=== PATIENT | female | born 1945 | race Caucasian/White ===

== ENCOUNTER → 2016-03-06 | Outpatient (CLI) | payer MEDICARE, BC ==
[~2016-03-06] MED LIST: ADVIL200 MG PO; ALIGN; ASPIRIN 32325 MG/TAB PO; ASPIRIN 81M81 MG/TA2 PO; ATIVAN 0.50.5 MG/TAB PO; B-121000 MCG PO; BETAPACE 80MG80 MG PO; BRILINTA90 MG PO; CARDIZEM CD 30300 MG PO; CARTIA XT300 MG PO; CEPHALEXIN500 M1 PO; COUMADIN 3MG3 MG/TAB PO; COUMADIN 6MG6 MG/TAB PO; COUMADIN4 MG PO; ELIQUIS 5MG PO; GLUCOPHAGE1000 MG PO; GLUCOPHAGE500 MG/TAB PO; LANOXIN 0.120.125 MG PO; LANOXIN 0.25M0.25 MG PO; LASIX 20MG TABL20 MG PO; LEVEMIR FLEXPEN SC; LEVEMIR100 U/ML SQ; LEXAPRO 10MG10 MG PO; LEXAPRO 5MG5 MG PO; LIPITOR 10MG10 MG PO; LIPITOR 80MG80 MG PO; LIPITOR20 MG PO; LOPRESSOR 225 MG/TAB PO; MAG-OX 400400 MG/TAB PO; MOTRIN 600600 MG/TAB PO; MULTI VITAMINS1 TAB PO; MULTIPLE VITAMI1 CAP PO; NATURE'S BL400 IU/ML PO; NITROSTAT0.4 MG/TAB SL; PACERONE200 MG PO; PLAVIX 75MG TAB75 MG PO; PRILOSEC 20MG20 MG PO; SYNTHROID0.05 MG/TA PO; SYNTHROID0.075 MG/T PO; SYNTHROID0.088 MG/T PO; SYNTHROID0.1 MG/TAB PO; SYNTHROID0.112 MG/T PO; SYNTHROID0.125 MG/T PO; TAZTIA360 PO; TOPROL XL 50MG50 MG PO; TYLENOL 325MG325 MG PO; TYLENOL ARTHRI650 M1 PO; VITAMIN B PO; VITAMIN B-1000 MCG/T PO; VTAMINC250TA PO; ZESTRIL2.5 MG PO
== END ==
LOC: MC.RAD 02-14 13:20
DX: Z12.31 Encounter for screening mammogram for malignant neoplasm of breast (principal); N64.89 Other specified disorders of breast

== ENCOUNTER → 2016-03-07 | Outpatient (CLI) | payer MEDICARE, BC | LOC: MC.RAD 11:14 | DX: Z12.39 Encounter for other screening for malignant neoplasm of breast (principal) ==

== ENCOUNTER → 2016-05-08 | Outpatient (CLI) | payer MEDICARE, BC | LOC: COL.RAD 13:55 | DX: N12 Tubulo-interstitial nephritis, not specified as acute or chronic (principal) | CPT/HCPCS: Q9967 ==

== ENCOUNTER → 2016-06-29 | Outpatient (CLI) | payer MEDICARE, BC | LOC: COL.RAD 09:22 | DX: N11.9 Chronic tubulo-interstitial nephritis, unspecified (principal); K80.20 Calculus of gallbladder without cholecystitis without obstruction | CPT/HCPCS: Q9967 ==

== ENCOUNTER 2016-09-07 06:29 | Day surgery (SDC) | payer MEDICARE, BC ==
[~2016-09-07] VITALS: Ht 162.6 cm; Wt 60.7 kg
[~2016-09-07 06:29] MED LIST changes: -MOTRIN 600600 MG/TAB PO; -VITAMIN B-1000 MCG/T PO
[2016-09-07 07:24] LABS: INR 1.2 (0.8-3.0); PROTHROMBIN TIME 13.7 SECONDS (9.7-12.8)
[2016-09-07 07:34] VITALS: BP 114/80; PULSE 77; TEMP 98
[2016-09-07] MEDS ORDERED: LEXAPRO 10MG10 MG PO (07:39)
[2016-09-07] MEDS ORDERED: LASIX 20MG TABL20 MG PO (07:43)
[2016-09-07] MEDS ORDERED: MOTRIN 600600 MG/TAB PO (07:45)
[2016-09-07] MEDS ORDERED: VITAMIN B-1000 MCG/T PO (07:46)
[2016-09-07] MEDS ORDERED: TAZTIA360 PO (07:47)
[2016-09-07 08:45] VITALS: BP 100/65; PULSE 70; TEMP 98
[2016-09-07 09:00] VITALS: BP 109/61; PULSE 70
[2016-09-07 09:15] VITALS: BP 109/68; PULSE 70
== END 2016-09-07 09:38 | disposition home or self-care (01) ==
LOC: SDCO 06:29
PROVIDERS: Surgery
DX: Z12.11 Encounter for screening for malignant neoplasm of colon (principal); I25.10 Atherosclerotic heart disease of native coronary artery without angina pectoris; I25.2 Old myocardial infarction; I07.1 Rheumatic tricuspid insufficiency; I50.9 Heart failure, unspecified; I48.91 Unspecified atrial fibrillation; E11.9 Type 2 diabetes mellitus without complications; J31.0 Chronic rhinitis; E78.5 Hyperlipidemia, unspecified; E03.9 Hypothyroidism, unspecified; F32.9 Major depressive disorder, single episode, unspecified; K58.9 Irritable bowel syndrome, unspecified; Z95.0 Presence of cardiac pacemaker; Z79.84 Long term (current) use of oral hypoglycemic drugs; Z79.01 Long term (current) use of anticoagulants; Z86.010 Personal history of colon polyps; Z80.0 Family history of malignant neoplasm of digestive organs
CPT/HCPCS: OP; J2704; J7030

== ENCOUNTER → 2016-11-01 | Outpatient (CLI) | payer MEDICARE, BC ==
[~2016-11-01] MED LIST changes: +MOTRIN 600600 MG/TAB PO; +VITAMIN B-1000 MCG/T PO
== END ==
LOC: BHSO 10:08
DX: F41.1 Generalized anxiety disorder (principal)

== ENCOUNTER → 2017-01-28 | Outpatient (CLI) | payer MEDICARE, BC | LOC: BHSO 09:34 | DX: F41.1 Generalized anxiety disorder (principal) ==

== ENCOUNTER 2017-02-22 13:26 | Inpatient (IN) | payer MEDICARE, BC ==
[~2017-02-22] VITALS: Ht 162.6 cm; Wt 66.4 kg
[~2017-02-22 13:26] MED LIST changes: +COUMADIN 5MG5 MG/TAB PO; -COUMADIN4 MG PO
[2017-02-22 14:21] LABS: BASO # 0.1 (0.0-0.2); BASO % 0.7 % (0.0-2.0); EOS % 0.4 % (0-4.0); GRAN # 6.9 (1.4-6.5); GRAN % 82.2 % (42.2-75.2); HEMATOCRIT 39.1 % (37.0-47.0); HEMOGLOBIN 13.2 g/dl (12.5-16.0); LYMPH # 0.9 (1.2-3.4); LYMPH % 10.7 % (20.0-51.0); MEAN CELL VOLUME 94 fl (80.0-100.0); MEAN CORPUSCULAR HEMOGLOBIN 32 pg (27.0-31.0); MEAN CORPUSCULAR HGB CONC 34 g/dl (33.0-37.0); MEAN PLATELET VOLUME 11.1 fl (7.4-10.4); MONO # 0.5 (0.1-0.6); MONO % 5.8 % (1.7-9.3); PLATELET COUNT 245 K/mm3 (130-400); RED BLOOD COUNT 4.18 M/mm3 (4.10-5.30); REDCELL DISTRIBUTION WIDTH-CV 12.1 % (11.5-14.5)
[2017-02-22 14:30] LABS: BILIRUBIN,TOTAL 0.7 mg/dL (0.0-1.0); C-REACTIVE PROTEIN 0.9 mg/dL (0.0-0.9); CALCIUM 9.7 mg/dL (8.4-10.2); POTASSIUM 4.7 mmol/L (3.4-5.0); TOTAL PROTEIN 8.4 gm/dL (6.4-8.2)
[2017-02-22 14:31] LABS: INR 5.2 (0.8-3.0); PROTHROMBIN TIME 62.8 SECONDS (9.7-12.8)
[2017-02-22 14:35] LABS: CREATININE, serum 5.08 mg/dL (0.52-1.25)
[2017-02-22 15:14] LABS: TROPONIN-I 0.297 ng/mL (0.000-0.034)
[2017-02-22 15:16] LABS: DIGOXIN 1.8 ng/mL (0.8-2.0)
[2017-02-22 19:39] LABS: COLLECTION METHOD CLEAN CATCH
[2017-02-22 19:53] LABS: PH 5 (5-8); SQUAMOUS EPITHELIAL 0-2 /hpf; URINE APPEARANCE Hazy; URINE BACTERIA Rare /hpf; URINE BILIRUBIN Negative (NEGATIVE); URINE BLOOD Negative (NEGATIVE); URINE COLOR Yellow; URINE GLUCOSE Negative (NEGATIVE); URINE KETONE Negative (NEGATIVE); URINE LEUKOCYTE ESTERASE Trace (NEGATIVE); URINE NITRATE Negative (NEGATIVE); URINE PROTEIN(semi-quant) 1+ (NEGATIVE); URINE UROBILINOGEN Negative (NEGATIVE)
[2017-02-22 20:47] VITALS: BP 100/78; PULSE 60; TEMP 98.3
[2017-02-22] MEDS ORDERED: NAMENDA5 MG PO (20:51)
[2017-02-22] MEDS ORDERED: COUMADIN4 MG PO (20:57)
[2017-02-22 21:16] LABS: CALCIUM 9.1 mg/dL (8.4-10.2); POTASSIUM 4.6 mmol/L (3.4-5.0)
[2017-02-22 21:19] LABS: CREATININE, serum 5.11 mg/dL (0.52-1.25)
[2017-02-23 00:29] VITALS: BP 127/64; PULSE 70; TEMP 98.6
[2017-02-23 03:53] VITALS: BP 129/67; PULSE 70; TEMP 98.7
[2017-02-23 06:52] LABS: BASO % 0.6 % (0.0-2.0); EOS # 0.1 (0.0-0.7); EOS % 1.9 % (0-4.0); GRAN # 4.7 (1.4-6.5); GRAN % 72.5 % (42.2-75.2); LYMPH # 1.2 (1.2-3.4); LYMPH % 18.4 % (20.0-51.0); MEAN CELL VOLUME 94 fl (80.0-100.0); MEAN CORPUSCULAR HGB CONC 34 g/dl (33.0-37.0); MEAN PLATELET VOLUME 11.3 fl (7.4-10.4); MONO # 0.4 (0.1-0.6); MONO % 6.3 % (1.7-9.3); PLATELET COUNT 214 K/mm3 (130-400); RED BLOOD COUNT 3.74 M/mm3 (4.10-5.30)
[2017-02-23 06:57] LABS: HEMOGLOBIN 11.8 g/dl (12.5-16.0); MEAN CORPUSCULAR HEMOGLOBIN 32 pg (27.0-31.0)
[2017-02-23 07:12] LABS: INR 5.1 (0.8-3.0); PROTHROMBIN TIME 60.6 SECONDS (9.7-12.8)
[2017-02-23 07:28] VITALS: BP 130/81; PULSE 94; TEMP 97.6
[2017-02-23 10:00] LABS: POTASSIUM 4.4 mmol/L (3.4-5.0)
[2017-02-23 10:03] LABS: CREATININE, serum 5.15 mg/dL (0.52-1.25)
[2017-02-23 11:21] VITALS: BP 128/70; PULSE 73; TEMP 98.1
[2017-02-23 15:24] VITALS: BP 127/50; PULSE 35; TEMP 97.7
[2017-02-23 21:08] LABS: URINE PROTEIN:CREAT RATIO 0.89 (0.00-0.14)
[2017-02-23 22:25] VITALS: BP 140/77; PULSE 70; TEMP 98.5
[2017-02-24] VITALS (7 sets, daily range): BP systolic 111–145; BP diastolic 40–83; PULSE 62–95; TEMP 97.9–98.7
[2017-02-24 06:29] LABS: BASO % 0.5 % (0.0-2.0); EOS # 0.1 (0.0-0.7); EOS % 1.2 % (0-4.0); GRAN # 5.9 (1.4-6.5); GRAN % 79.9 % (42.2-75.2); LYMPH # 0.7 (1.2-3.4); LYMPH % 10.1 % (20.0-51.0); MEAN CELL VOLUME 93 fl (80.0-100.0); MEAN CORPUSCULAR HGB CONC 34 g/dl (33.0-37.0); MEAN PLATELET VOLUME 11.4 fl (7.4-10.4); MONO # 0.6 (0.1-0.6); PLATELET COUNT 196 K/mm3 (130-400); RED BLOOD COUNT 3.77 M/mm3 (4.10-5.30); REDCELL DISTRIBUTION WIDTH-CV 12.1 % (11.5-14.5)
[2017-02-24 06:30] LABS: INR 3.2 (0.8-3.0); PROTHROMBIN TIME 37.8 SECONDS (9.7-12.8)
[2017-02-24 06:31] LABS: HEMATOCRIT 34.9 % (37.0-47.0); HEMOGLOBIN 11.9 g/dl (12.5-16.0); MEAN CORPUSCULAR HEMOGLOBIN 32 pg (27.0-31.0)
[2017-02-24 06:47] LABS: TROPONIN-I 0.023 ng/mL (0.000-0.034)
[2017-02-25 04:41] LABS: COLLECTION METHOD CLEAN CATCH
[2017-02-25 04:50] LABS: MUCOUS Present /lpf; PH 5 (5-8); SQUAMOUS EPITHELIAL None Seen /hpf; URINE APPEARANCE Clear; URINE BACTERIA None Seen /hpf; URINE BILIRUBIN Negative (NEGATIVE); URINE BLOOD 2+ (NEGATIVE); URINE COLOR Straw; URINE GLUCOSE Negative (NEGATIVE); URINE KETONE Negative (NEGATIVE); URINE LEUKOCYTE ESTERASE Negative (NEGATIVE); URINE NITRATE Negative (NEGATIVE); URINE PROTEIN(semi-quant) Negative (NEGATIVE); URINE RBC 0-2 /hpf; URINE UROBILINOGEN Negative (NEGATIVE)
[2017-02-25 07:34] VITALS: BP 135/63; PULSE 71; TEMP 97.8
[2017-02-25 08:08] LABS: BASO % 0.3 % (0.0-2.0); EOS # 0.1 (0.0-0.7); EOS % 1.4 % (0-4.0); GRAN # 5.9 (1.4-6.5); GRAN % 81.5 % (42.2-75.2); LYMPH # 0.6 (1.2-3.4); LYMPH % 8.9 % (20.0-51.0); MEAN CELL VOLUME 92 fl (80.0-100.0); MEAN CORPUSCULAR HGB CONC 34 g/dl (33.0-37.0); MEAN PLATELET VOLUME 11.5 fl (7.4-10.4); MONO # 0.6 (0.1-0.6); MONO % 7.8 % (1.7-9.3); PLATELET COUNT 174 K/mm3 (130-400); RED BLOOD COUNT 3.56 M/mm3 (4.10-5.30)
[2017-02-25 08:10] LABS: HEMATOCRIT 32.7 % (37.0-47.0); HEMOGLOBIN 11.1 g/dl (12.5-16.0); MEAN CORPUSCULAR HEMOGLOBIN 31 pg (27.0-31.0)
[2017-02-25 08:19] LABS: INR 2.5 (0.8-3.0); PROTHROMBIN TIME 29.8 SECONDS (9.7-12.8)
[2017-02-25 11:10] VITALS: BP 138/74; PULSE 70; TEMP 98.2
[2017-02-25 13:10] LABS: CALCIUM 9.2 mg/dL (8.4-10.2); POTASSIUM 4.5 mmol/L (3.4-5.0)
[2017-02-25 13:15] LABS: CREATININE, serum 5.97 mg/dL (0.52-1.25)
[2017-02-25 15:47] VITALS: BP 143/88; PULSE 54; TEMP 97.7
[2017-02-25 19:30] VITALS: BP 131/78; PULSE 83; TEMP 97.4
[2017-02-25 22:41] LABS: COMPLEMENT-C3 128 mg/dL (79-152); COMPLEMENT-C4 31 mg/dL (18-55)
[2017-02-26 06:33] VITALS: BP 142/82; PULSE 71; TEMP 98
[2017-02-26 08:15] LABS: CALCIUM 9.6 mg/dL (8.4-10.2); POTASSIUM 4.3 mmol/L (3.4-5.0)
[2017-02-26 08:26] LABS: CREATININE, serum 5.85 mg/dL (0.52-1.25)
[2017-02-26 08:35] VITALS: BP 150/90; PULSE 76; TEMP 97.7
[2017-02-26 12:03] VITALS: BP 135/63; PULSE 70; TEMP 97.8
[2017-02-26 16:19] VITALS: BP 125/57; PULSE 72; TEMP 97.9
[2017-02-26 20:19] VITALS: BP 121/64; PULSE 70; TEMP 97.5
[2017-02-27 03:09] VITALS: BP 150/79; PULSE 71; TEMP 97.1
[2017-02-27 07:40] LABS: CALCIUM 9.3 mg/dL (8.4-10.2); MAGNESIUM 2.3 mg/dL (1.6-2.3); POTASSIUM 4.6 mmol/L (3.4-5.0)
[2017-02-27 07:48] LABS: CREATININE, serum 5.63 mg/dL (0.52-1.25)
[2017-02-27] MEDS ORDERED: JANUVIA25 MG PO (11:45)
[2017-02-27] MEDS ORDERED: ASPIRIN E.C. 8181 MG PO (11:46)
[2017-02-27 12:20] VITALS: BP 139/86; PULSE 72; TEMP 97.3
[2017-02-27 14:10] VITALS: BP 139/86; PULSE 72; TEMP 97.3
[2017-02-27 17:02] VITALS: BP 141/65; PULSE 69; TEMP 97.9
[2017-02-27 19:41] VITALS: BP 148/81; PULSE 74; TEMP 98.6
[2017-02-28 05:51] VITALS: BP 140/74; PULSE 72; TEMP 99.1
[2017-02-28 07:33] LABS: INR 1.3 (0.8-3.0); PROTHROMBIN TIME 15.3 SECONDS (9.7-12.8)
[2017-02-28 07:54] LABS: CALCIUM 9.5 mg/dL (8.4-10.2); POTASSIUM 4.5 mmol/L (3.4-5.0)
[2017-02-28 08:05] LABS: CREATININE, serum 5.42 mg/dL (0.52-1.25)
[2017-02-28 08:24] VITALS: BP 142/76; PULSE 81; TEMP 97.9
[2017-02-28 10:09] VITALS: BP 139/86; PULSE 72; TEMP 97.3
== END 2017-02-28 11:45 | DRG 683 ==
LOC: COL.ER 13:26 → MEDICAL 19:05
PROVIDERS: Emergency Medicine; Internal Medicine; Nurse Practitioner Family
DX: N17.9 Acute kidney failure, unspecified (principal); E87.2 Acidosis; I13.0 Hypertensive heart and chronic kidney disease with heart failure and stage 1 through stage 4 chronic kidney disease, or unspecified chronic kidney disease; I50.32 Chronic diastolic (congestive) heart failure; F01.51 Vascular dementia, unspecified severity, with behavioral disturbance; Z66 Do not resuscitate; N18.1 Chronic kidney disease, stage 1; E11.22 Type 2 diabetes mellitus with diabetic chronic kidney disease; E11.319 Type 2 diabetes mellitus with unspecified diabetic retinopathy without macular edema; I48.2 Chronic atrial fibrillation; I25.10 Atherosclerotic heart disease of native coronary artery without angina pectoris; Z79.01 Long term (current) use of anticoagulants; Z95.5 Presence of coronary angioplasty implant and graft; Z95.0 Presence of cardiac pacemaker
CPT/HCPCS: 99223; 99231-AI; J3475; J7030

== ENCOUNTER → 2017-03-06 | Outpatient (CLI) | payer MEDICARE, BC ==
[~2017-03-06] MED LIST changes: +ASPIRIN E.C. 8181 MG PO; +COUMADIN4 MG PO; +JANUVIA25 MG PO; +NAMENDA5 MG PO
[2017-03-06 18:00] LABS: MEAN CELL VOLUME 91 fl (80.0-100.0); MEAN CORPUSCULAR HGB CONC 35 g/dl (33.0-37.0); MEAN PLATELET VOLUME 11.1 fl (7.4-10.4); PLATELET COUNT 246 K/mm3 (130-400); RED BLOOD COUNT 3.46 M/mm3 (4.10-5.30); REDCELL DISTRIBUTION WIDTH-CV 11.9 % (11.5-14.5)
[2017-03-06 18:06] LABS: HEMATOCRIT 31.4 % (37.0-47.0); HEMOGLOBIN 10.9 g/dl (12.5-16.0); MEAN CORPUSCULAR HEMOGLOBIN 32 pg (27.0-31.0)
[2017-03-06 18:13] LABS: ALBUMIN 4.4 gm/dL (3.5-5.0); BILIRUBIN,TOTAL 0.4 mg/dL (0.0-1.0); CALCIUM 9.2 mg/dL (8.4-10.2); CREATININE, serum 3.35 mg/dL (0.52-1.25); POTASSIUM 3.9 mmol/L (3.4-5.0); TOTAL PROTEIN 7.7 gm/dL (6.4-8.2)
== END ==
LOC: ZCOL.LAB 17:51
PROVIDERS: Internal Medicine
DX: N17.9 Acute kidney failure, unspecified (principal)

== ENCOUNTER → 2017-03-14 | Outpatient (CLI) | payer MEDICARE, BC ==
[2017-03-14 16:55] LABS: COLLECTION METHOD CLEAN CATCH
[2017-03-14 17:04] LABS: BASO # 0.1 (0.0-0.2); BASO % 0.8 % (0.0-2.0); EOS # 0.1 (0.0-0.7); EOS % 1.9 % (0-4.0); GRAN # 4.7 (1.4-6.5); GRAN % 75.5 % (42.2-75.2); LYMPH # 0.9 (1.2-3.4); LYMPH % 14.9 % (20.0-51.0); MEAN CELL VOLUME 95 fl (80.0-100.0); MEAN CORPUSCULAR HGB CONC 33 g/dl (33.0-37.0); MEAN PLATELET VOLUME 10.6 fl (7.4-10.4); MONO # 0.4 (0.1-0.6); MONO % 6.6 % (1.7-9.3); PLATELET COUNT 301 K/mm3 (130-400); RED BLOOD COUNT 3.21 M/mm3 (4.10-5.30); REDCELL DISTRIBUTION WIDTH-CV 11.9 % (11.5-14.5)
[2017-03-14 17:14] LABS: HEMATOCRIT 30.4 % (37.0-47.0); HEMOGLOBIN 10.1 g/dl (12.5-16.0); MEAN CORPUSCULAR HEMOGLOBIN 31 pg (27.0-31.0)
[2017-03-14 17:14] LABS: CALCIUM 9.5 mg/dL (8.4-10.2); CREATININE, serum 2.04 mg/dL (0.52-1.25); PH 5 (5-8); POTASSIUM 4.2 mmol/L (3.4-5.0); SQUAMOUS EPITHELIAL 0-2 /hpf; URINE APPEARANCE Clear; URINE BACTERIA Rare /hpf; URINE BILIRUBIN Negative (NEGATIVE); URINE BLOOD 1+ (NEGATIVE); URINE COLOR Yellow; URINE GLUCOSE Negative (NEGATIVE); URINE KETONE Negative (NEGATIVE); URINE LEUKOCYTE ESTERASE Trace (NEGATIVE); URINE NITRATE Negative (NEGATIVE); URINE PROTEIN(semi-quant) Negative (NEGATIVE); URINE UROBILINOGEN Negative (NEGATIVE)
[2017-03-15 14:04] LABS: URINE MICROALBUMIN 3.3 mg/dL (0.0-1.7)
== END ==
LOC: COL.LAB 16:06
PROVIDERS: Internal Medicine
DX: N17.8 Other acute kidney failure (principal); E87.1 Hypo-osmolality and hyponatremia

== ENCOUNTER → 2017-04-16 | Outpatient (CLI) | payer MEDICARE, BC ==
[~2017-04-16] MED LIST changes: +DIGITEK0.125 MG PO; +FLONASEALLERGY NS; +OMNICEF 300MG300 MG PO
[2017-04-16 10:51] LABS: HEMATOCRIT 32.2 % (37.0-47.0); HEMOGLOBIN 10.7 g/dl (12.5-16.0)
[2017-04-16 10:58] LABS: CALCIUM 10.1 mg/dL (8.4-10.2); CREATININE, serum 1.38 mg/dL (0.52-1.25); POTASSIUM 4.2 mmol/L (3.4-5.0)
[2017-04-16 23:21] LABS: URINE MICROALBUMIN 0.7 mg/dL (0.0-1.7)
== END ==
LOC: COL.LAB 09:43
PROVIDERS: Internal Medicine
DX: N17.8 Other acute kidney failure (principal); R80.8 Other proteinuria

== ENCOUNTER 2017-04-29 11:25 | Emergency (ER) | payer MEDICARE, BC ==
[~2017-04-29] VITALS: Ht 162.6 cm; Wt 61.4 kg
[2017-04-29 11:29] VITALS: TEMP 97.8
[2017-04-29 13:06] LABS: BASO # 0.1 (0.0-0.2); EOS # 0.1 (0.0-0.7); GRAN # 4.9 (1.4-6.5); GRAN % 80.1 % (42.2-75.2); LYMPH # 0.7 (1.2-3.4); MEAN CELL VOLUME 94 fl (80.0-100.0); MEAN CORPUSCULAR HGB CONC 33 g/dl (33.0-37.0); MEAN PLATELET VOLUME 10.7 fl (7.4-10.4); MONO # 0.3 (0.1-0.6); MONO % 5.6 % (1.7-9.3); PLATELET COUNT 200 K/mm3 (130-400); RED BLOOD COUNT 3.45 M/mm3 (4.10-5.30); REDCELL DISTRIBUTION WIDTH-CV 12.7 % (11.5-14.5)
[2017-04-29 13:07] LABS: HEMATOCRIT 32.4 % (37.0-47.0); HEMOGLOBIN 10.8 g/dl (12.5-16.0); MEAN CORPUSCULAR HEMOGLOBIN 31 pg (27.0-31.0)
[2017-04-29 13:11] LABS: INR 2.7 (0.8-3.0); PROTHROMBIN TIME 32.1 SECONDS (9.7-12.8)
[2017-04-29 13:21] LABS: CALCIUM 9.9 mg/dL (8.4-10.2); CREATININE, serum 1.3 mg/dL (0.52-1.25); POTASSIUM 4.5 mmol/L (3.4-5.0)
[2017-04-29 13:36] VITALS: BP 136/78; PULSE 79
== END 2017-04-29 13:37 | disposition home or self-care (01) ==
LOC: COL.ER 11:25
PROVIDERS: Physician Assistant
DX: S01.01XA Laceration without foreign body of scalp, initial encounter (principal); S00.83XA Contusion of other part of head, initial encounter; S70.02XA Contusion of left hip, initial encounter; S80.02XA Contusion of left knee, initial encounter; S90.122A Contusion of left lesser toe(s) without damage to nail, initial encounter; I11.0 Hypertensive heart disease with heart failure; I50.9 Heart failure, unspecified; I48.91 Unspecified atrial fibrillation; E11.9 Type 2 diabetes mellitus without complications; F03.90 Unspecified dementia, unspecified severity, without behavioral disturbance, psychotic disturbance, mood disturbance, and anxiety; Z79.01 Long term (current) use of anticoagulants; Z79.51 Long term (current) use of inhaled steroids; W01.198A Fall on same level from slipping, tripping and stumbling with subsequent striking against other object, initial encounter; Y92.008 Other place in unspecified non-institutional (private) residence as the place of occurrence of the external cause

== ENCOUNTER 2017-05-27 09:27 | Emergency (ER) | payer MEDICARE, BC ==
[~2017-05-27] VITALS: Ht 162.6 cm; Wt 63.3 kg
[2017-05-27 10:04] VITALS: TEMP 99.6
[2017-05-27 11:37] LABS: MEAN CELL VOLUME 93 fl (80.0-100.0); MEAN CORPUSCULAR HGB CONC 34 g/dl (33.0-37.0); MEAN PLATELET VOLUME 10.3 fl (7.4-10.4); PLATELET COUNT 172 K/mm3 (130-400); RED BLOOD COUNT 3.46 M/mm3 (4.10-5.30)
[2017-05-27 11:41] LABS: HEMATOCRIT 32.2 % (37.0-47.0); HEMOGLOBIN 10.9 g/dl (12.5-16.0); MEAN CORPUSCULAR HEMOGLOBIN 32 pg (27.0-31.0)
[2017-05-27 11:42] LABS: INR 4.1 (0.8-3.0)
[2017-05-27 11:44] LABS: PROTHROMBIN TIME 48.9 SECONDS (9.7-12.8)
[2017-05-27 11:49] LABS: BILIRUBIN,TOTAL 0.4 mg/dL (0.0-1.0); CALCIUM 9.1 mg/dL (8.4-10.2); CREATININE, serum 1.1 mg/dL (0.52-1.25); POTASSIUM 3.8 mmol/L (3.4-5.0); TOTAL PROTEIN 7.6 gm/dL (6.4-8.2)
[2017-05-27 12:48] LABS: BAND 9 % (0-10); LYMPHOCYTE 9 % (20.0-51.0); NEUTROPHILS 82 % (42.0-75.2); PLATELET ESTIMATE NORMAL (NORMAL)
[2017-05-27 12:49] LABS: ANISOCYTOSIS 1+
[2017-05-27 13:07] VITALS: BP 112/63; PULSE 80
== END 2017-05-27 13:08 | disposition home or self-care (01) ==
LOC: COL.ER 09:27
PROVIDERS: Emergency Medicine
DX: R79.1 Abnormal coagulation profile (principal); R51 Headache; I10 Essential (primary) hypertension; E11.9 Type 2 diabetes mellitus without complications; E78.5 Hyperlipidemia, unspecified; Z79.01 Long term (current) use of anticoagulants

== ENCOUNTER → 2017-07-09 | Outpatient (CLI) | payer MEDICARE, BC ==
[2017-07-09 12:23] LABS: HEMATOCRIT 35.4 % (37.0-47.0)
[2017-07-09 12:30] LABS: CALCIUM 9.9 mg/dL (8.4-10.2); CREATININE, serum 1.18 mg/dL (0.52-1.25); POTASSIUM 4.2 mmol/L (3.4-5.0)
[2017-07-09 22:17] LABS: URINE MICROALBUMIN 1.5 mg/dL (0.0-1.7)
== END ==
LOC: COL.LAB 11:31
PROVIDERS: Internal Medicine
DX: R80.8 Other proteinuria (principal); N17.8 Other acute kidney failure

== ENCOUNTER → 2017-08-13 | Outpatient (CLI) | payer MEDICARE, BC | LOC: MC.RAD 11:22 | DX: Z12.31 Encounter for screening mammogram for malignant neoplasm of breast (principal) ==

== ENCOUNTER 2018-07-03 06:20 | Emergency (ER) | payer MEDICARE, BC ==
[~2018-07-03] VITALS: Ht 162.6 cm; Wt 64.5 kg
[2018-07-03 06:23] VITALS: TEMP 97.7
[2018-07-03] MEDS ORDERED: NAMENDA 10MG TA10 MG PO (06:41)
[2018-07-03] MEDS ORDERED: LASIX 20MG TABL20 MG PO (06:42)
[2018-07-03] MEDS ORDERED: JANUVIA50 MG PO (06:42)
[2018-07-03] MEDS ORDERED: MASON NATURAL2000 IU (06:43)
[2018-07-03] MEDS ORDERED: COUMADIN 2MG2 MG/TAB PO (06:44)
[2018-07-03] MEDS ORDERED: COUMADIN 5MG5 MG/TAB PO (06:45)
[2018-07-03 07:07] LABS: BASO # 0.1 (0.0-0.2); BASO % 0.6 % (0.0-2.0); EOS # 0.2 (0.0-0.7); EOS % 1.7 % (0-4.0); GRAN # 7.8 (1.4-6.5); GRAN % 78.5 % (42.2-75.2); HEMOGLOBIN 12.4 g/dl (12.5-16.0); LYMPH # 1.1 (1.2-3.4); LYMPH % 11.3 % (20.0-51.0); MEAN CELL VOLUME 90 fl (80.0-100.0); MEAN CORPUSCULAR HEMOGLOBIN 31 pg (27.0-31.0); MEAN CORPUSCULAR HGB CONC 34 g/dl (33.0-37.0); MEAN PLATELET VOLUME 11.7 fl (7.4-10.4); MONO # 0.7 (0.1-0.6); MONO % 7.5 % (1.7-9.3); PLATELET COUNT 212 K/mm3 (130-400); RED BLOOD COUNT 4.03 M/mm3 (4.10-5.30); REDCELL DISTRIBUTION WIDTH-CV 11.8 % (11.5-14.5)
[2018-07-03 07:08] LABS: HEMATOCRIT 36.4 % (37.0-47.0)
[2018-07-03 07:17] LABS: INR 4.3 (0.8-3.0)
[2018-07-03 07:18] LABS: ALANINE AMINOTRANSFERASE 12 U/L (9-52); ALBUMIN 4.2 gm/dL (3.5-5.0); ALKALINE PHOSPHATASE 154 U/L (50-136); ANION GAP 10 mmol/L (7-16); AST,SGOT 19 U/L (15-37); BILIRUBIN,TOTAL 0.5 mg/dL (0.0-1.0); BLOOD UREA NITROGEN 26 mg/dL (7-17); CALCIUM 9.5 mg/dL (8.4-10.2); CARBON DIOXIDE 25 mmol/L (22-30); CHLORIDE 105 mmol/L (98-107); CREATININE, serum 1.44 (0.52-1.25); GLUCOSE 213 mg/dL (74-106); PROTHROMBIN TIME 48.5 SECONDS (9.7-12.8); SODIUM 140 mmol/L (137-145); TOTAL PROTEIN 8.2 gm/dL (6.4-8.2)
[2018-07-03 07:30] LABS: TROPONIN-I < 0.012 ng/mL (0.000-0.035)
[2018-07-03 11:37] VITALS: BP 117/65; PULSE 70
== END 2018-07-03 11:38 | disposition home or self-care (01) ==
LOC: COL.ER 06:20
PROVIDERS: Emergency Medicine
DX: R07.89 Other chest pain (principal); E78.5 Hyperlipidemia, unspecified; E11.9 Type 2 diabetes mellitus without complications; I48.91 Unspecified atrial fibrillation; E03.9 Hypothyroidism, unspecified; Z95.0 Presence of cardiac pacemaker; Z79.51 Long term (current) use of inhaled steroids; Z79.01 Long term (current) use of anticoagulants; Z95.5 Presence of coronary angioplasty implant and graft; Z79.84 Long term (current) use of oral hypoglycemic drugs

== ENCOUNTER → 2018-07-11 | Outpatient (CLI) | payer MEDICARE, BC ==
[~2018-07-11] MED LIST changes: +COUMADIN 2MG2 MG/TAB PO; +JANUVIA50 MG PO; +MASON NATURAL2000 IU; +NAMENDA 10MG TA10 MG PO
== END ==
LOC: COL.CARD 08:00
DX: I48.2 Chronic atrial fibrillation (principal); R53.83 Other fatigue; Z95.0 Presence of cardiac pacemaker

== ENCOUNTER 2020-08-23 17:45 | Emergency (ER) | payer MEDICARE, BC ==
[~2020-08-23] VITALS: Ht 162.6 cm; Wt 72.3 kg
[2020-08-23 18:27] VITALS: TEMP 98.2
[2020-08-23 19:44] LABS: ALANINE AMINOTRANSFERASE 13 U/L (4-34); ALBUMIN 4.1 gm/dL (3.5-5.0); ALKALINE PHOSPHATASE 78 U/L (50-136); ANION GAP 7 mmol/L (7-16); AST,SGOT 28 U/L (15-37); BASO % 0.5 % (0.0-2.0); BILIRUBIN,TOTAL 0.5 mg/dL (0.0-1.0); BLOOD UREA NITROGEN 34 mg/dL (7-17); CALCIUM 9.7 mg/dL (8.4-10.2); CARBON DIOXIDE 25 mmol/L (22-30); CHLORIDE 105 mmol/L (98-107); CREATININE, serum 1.95 (0.52-1.25); EOS # 0.1 (0.0-0.7); EOS % 1.6 % (0-4.0); GLUCOSE 150 mg/dL (74-106); GRAN # 6.4 (1.4-6.5); GRAN % 77.8 % (42.2-75.2); HEMOGLOBIN 11.9 g/dl (12.5-16.0); LYMPH # 1.2 (1.2-3.4); MEAN CELL VOLUME 93 fl (80.0-100.0); MEAN CORPUSCULAR HEMOGLOBIN 31 pg (27.0-31.0); MEAN CORPUSCULAR HGB CONC 33 g/dl (33.0-37.0); MEAN PLATELET VOLUME 11.4 fl (7.4-10.4); MONO # 0.5 (0.1-0.6); MONO % 5.7 % (1.7-9.3); PLATELET COUNT 179 K/mm3 (130-400); POTASSIUM 4.6 mmol/L (3.4-5.0); RED BLOOD COUNT 3.89 M/mm3 (4.10-5.30); REDCELL DISTRIBUTION WIDTH-CV 13.2 % (11.5-14.5); SODIUM 137 mmol/L (137-145); TOTAL PROTEIN 7.8 gm/dL (6.4-8.2)
[2020-08-23 19:49] LABS: HEMATOCRIT 36.2 % (37.0-47.0)
[2020-08-23 19:55] LABS: INR 3.2 (0.8-3.0); PROTHROMBIN TIME 36.1 SECONDS (9.7-12.8)
[2020-08-23 19:57] LABS: PARTIAL THROMBOPLASTIN TIME 41.9 SECONDS (26.0-37.0)
[2020-08-23 20:10] LABS: TROPONIN-I < 0.012 ng/mL (0.000-0.035)
[2020-08-23 20:18] LABS: CREATINE KINASE 57 U/L (30-135)
[2020-08-23 21:43] LABS: COLLECTION METHOD CLEAN CATCH
[2020-08-23 21:49] LABS: MUCOUS Present /lpf; PH 5 (5-8); SQUAMOUS EPITHELIAL 0-2 /hpf; URINE APPEARANCE Clear; URINE BACTERIA None Seen /hpf; URINE BILIRUBIN Negative (NEGATIVE); URINE BLOOD Negative (NEGATIVE); URINE COLOR Yellow; URINE GLUCOSE Negative (NEGATIVE); URINE KETONE Negative (NEGATIVE); URINE LEUKOCYTE ESTERASE Trace (NEGATIVE); URINE NITRATE Negative (NEGATIVE); URINE PROTEIN(semi-quant) Negative (NEGATIVE); URINE RBC 0-2 /hpf; URINE UROBILINOGEN Negative (NEGATIVE)
[2020-08-23] MEDS ORDERED: MACROBID 1100 MG/CAP PO (22:35)
[2020-08-24 00:02] VITALS: BP 132/72; PULSE 78
== END 2020-08-24 00:02 | disposition home or self-care (01) ==
LOC: COL.ER 17:45
PROVIDERS: Emergency Medicine
DX: N39.0 Urinary tract infection, site not specified (principal); R79.89 Other specified abnormal findings of blood chemistry; I48.91 Unspecified atrial fibrillation; F03.90 Unspecified dementia, unspecified severity, without behavioral disturbance, psychotic disturbance, mood disturbance, and anxiety; I50.9 Heart failure, unspecified; I25.2 Old myocardial infarction; Z95.0 Presence of cardiac pacemaker; Z88.0 Allergy status to penicillin; Z88.1 Allergy status to other antibiotic agents; Z79.899 Other long term (current) drug therapy; Z79.01 Long term (current) use of anticoagulants

== ENCOUNTER 2021-11-23 20:17 | Emergency (ER) | payer MEDICARE, BC ==
[~2021-11-23] VITALS: Ht 162.6 cm; Wt 63.6 kg
[~2021-11-23 20:17] MED LIST changes: +MACROBID 1100 MG/CAP PO
[2021-11-23 20:18] VITALS: TEMP 97.7
[2021-11-23 21:04] LABS: BASO # 0.1 K/mm3 (0.0-0.2); BASO % 0.7 % (0.0-2.0); EOS # 0.1 K/mm3 (0.0-0.7); EOS % 1.5 % (0.0-4.0); GRAN # 5.2 K/mm3 (1.4-6.5); GRAN % 68.3 % (42.2-75.2); HEMATOCRIT 42.3 % (37.0-47.0); HEMOGLOBIN 13.8 g/dl (12.5-16.0); LYMPH # 1.7 K/mm3 (1.2-3.4); LYMPH % 22.3 % (20.0-51.0); MEAN CELL VOLUME 93 fl (80.0-100.0); MEAN CORPUSCULAR HEMOGLOBIN 30 pg (27-31); MEAN CORPUSCULAR HGB CONC 33 g/dl (33.0-37.0); MEAN PLATELET VOLUME 12.3 fl (7.4-10.4); MONO # 0.5 K/mm3 (0.1-0.6); MONO % 6.9 % (1.7-9.3); PLATELET COUNT 127 K/mm3 (130-400); RED BLOOD COUNT 4.55 M/mm3 (4.10-5.30); REDCELL DISTRIBUTION WIDTH-CV 12.8 % (11.5-14.5)
[2021-11-23 21:06] LABS: INR 1.5 (0.8-3.0); PROTHROMBIN TIME 17.6 SECONDS (9.7-12.8)
[2021-11-23 21:16] LABS: CALCIUM 9.9 mg/dL (8.4-10.2); CREATININE, serum 1.42 mg/dL (0.57-1.11); POTASSIUM 4.3 mmol/L (3.5-4.5)
[2021-11-23 21:22] LABS: TROPONIN-I 0.024 ng/mL (0.00-0.033)
[2021-11-23 22:10] LABS: COLLECTION METHOD CLEAN CATCH
[2021-11-23 22:25] LABS: PH 6.5 (5.0-8.5); URINE APPEARANCE Clear (CLEAR/HAZY); URINE COLOR Yellow (YELLOW)
[2021-11-23 22:26] LABS: URINE BLOOD Negative (NEGATIVE); URINE GLUCOSE Negative (NEGATIVE); URINE KETONE Negative (NEGATIVE); URINE NITRATE Negative (NEGATIVE); URINE PROTEIN(semi-quant) Negative (NEGATIVE); URINE UROBILINOGEN 0.2 E.U/dL (0.2-1.0)
[2021-11-23 22:27] LABS: SQUAMOUS EPITHELIAL None Seen /hpf (0-10); URINE BACTERIA Rare /hpf (NONE SEEN); URINE RBC 0-2 /hpf (0-2)
[2021-11-23] MEDS ORDERED: CEPHALEXIN500 M1 PO (22:55)
[2021-11-23 23:28] VITALS: BP 113/68; PULSE 76
== END 2021-11-23 23:28 | disposition home or self-care (01) ==
LOC: COL.ER 20:17
PROVIDERS: Emergency Medicine
DX: R29.6 Repeated falls (principal); R79.89 Other specified abnormal findings of blood chemistry; Z88.0 Allergy status to penicillin; Z88.1 Allergy status to other antibiotic agents; Z20.822 Contact with and (suspected) exposure to COVID-19
CPT/HCPCS: J7120

== ENCOUNTER → 2023-01-03 | Outpatient (CLI) | payer MEDICARE, BC ==
[2023-01-03 14:56] LABS: CALCIUM 9.6 mg/dL (8.4-10.2); CREATININE, serum 1.68 mg/dL (0.57-1.11)
== END ==
LOC: ZCOL.LAB 14:30
PROVIDERS: Internal Medicine
DX: E11.22 Type 2 diabetes mellitus with diabetic chronic kidney disease (principal); N18.32 Chronic kidney disease, stage 3b; E11.69 Type 2 diabetes mellitus with other specified complication

== ENCOUNTER → 2023-05-07 | Outpatient (REF) | payer MEDICARE, BC ==
[2023-05-07 12:15] LABS: CALCIUM 9.5 mg/dL (8.4-10.2); CREATININE, serum 1.24 mg/dL (0.57-1.11); POTASSIUM 4.4 mmol/L (3.5-4.5)
== END ==
LOC: ZCOL.LAB 10:29
PROVIDERS: Internal Medicine
DX: N18.32 Chronic kidney disease, stage 3b (principal); E11.69 Type 2 diabetes mellitus with other specified complication